=== PATIENT | male | born 1990 | race Caucasian/White ===

== ENCOUNTER 2016-06-25 00:01 | Emergency (ER) | payer SELFPAY ==
[~2016-06-25] VITALS: Ht 193 cm; Wt 124.7 kg
[2016-06-25 00:45] LABS: OBC FLU VALID
[2016-06-25] MEDS ORDERED: IV NORMAL SALINE 1000ML BAG 1,000 ML IV ONE (00:45)
--- NOTE | 2016-06-25 00:54 | PHYS DOC ---
Past Medical History Past Medical History: No Pertinent History Past Surgical History: No Surgical History Additional Information: PPD Alcohol Use: Occasionally Drug Use: None Adult General Chief Complaint Chief Complaint: FEVER HPI HPI 25-year-old male who's had cough and congestion for the last 2-3 days as well as a sore throat. He denies any significant chest pain or shortness of breath. He denies any nausea or vomiting. He states he has been able to keep well- hydrated and has a normal appetite. He denies any history of health problems. Patient does state he smokes but has not been smoking with this illness. Review of Systems Review of Systems Constitutional: Denies fever or chills [] Eyes: Denies change in visual acuity, redness, or eye pain [] HENT: Denies nasal congestion or sore throat [] Respiratory: Denies cough or shortness of breath [] Cardiovascular: No additional information not addressed in HPI [] GI: Denies abdominal pain, nausea, vomiting, bloody stools or diarrhea [] : Denies dysuria or hematuria [] Musculoskeletal: Denies back pain or joint pain [] Integument: Denies rash or skin lesions [] Neurologic: Denies headache, focal weakness or sensory changes [] Endocrine: Denies polyuria or polydipsia [] Current Medications Current Medications Current Medications Medications (Trade) Dose Ordered Sig/Natasha Start Time Stop Time Status Last Admin Dose Admin Oseltamivir Phosphate (Tamiflu) 75 mg 1X ONCE 06/25/16 01:00 06/25/16 01:01 DC 06/25/16 00:58 75 MG Sodium Chloride (Iv Sodium Chloride 0.9% 1000ml Bag) 1,000 ml @ 1,000 mls/hr 1X ONCE 06/25/16 00:45 06/25/16 01:44 DC 06/25/16 00:41 1,000 MLS/HR Allergies Allergies Allergies Coded Allergies Type Severity Reaction Last Updated Verified No Known Drug Allergies 06/25/16 No Physical Exam Physical Exam Constitutional: Well developed, well nourished, no acute distress, non-toxic appearance. [] HENT: Normocephalic, atraumatic, bilateral external ears normal, oropharynx moist, no oral exudates, nose normal. [] Eyes: PERRLA, EOMI, conjunctiva normal, no discharge. [] Neck: Normal range of motion, no tenderness, supple, no stridor. [] Cardiovascular:Heart rate regular rhythm, no murmur [] Lungs & Thorax: Bilateral breath sounds clear to auscultation [] Abdomen: Bowel sounds normal, soft, no tenderness, no masses, no pulsatile masses. [] Skin: Warm, dry, no erythema, no rash. [] Back: No tenderness, no CVA tenderness. [] Extremities: No tenderness, no cyanosis, no clubbing, ROM intact, no edema. [] Neurologic: Alert and oriented X 3, normal motor function, normal sensory function, no focal deficits noted. [] Psychologic: Affect normal, judgement normal, mood normal. [] Current Patient Data Vital Signs Vital Signs Date Time Temp Pulse Resp B/P Pulse Ox O2 Delivery O2 Flow Rate FiO2 06/25/16 01:45 112 20 144/87 92 Room Air 06/25/16 00:05 98.5 98.5 Lab Values Laboratory Tests Test 06/25/16 00:10 06/25/16 00:47 Influenza Type A Antigen Negative (NEGATIVE) Influenza Type B Antigen Positive (NEGATIVE) White Blood Count 10.2x10^3/uL (4.0-11.0) Red Blood Count 4.66x10^6/uL (4.30-5.70) Hemoglobin 14.9g/dL (13.0-17.5) Hematocrit 43.1% (39.0-53.0) Mean Corpuscular Volume 93fL (79-100) Mean Corpuscular Hemoglobin 32pg (25-35) Mean Corpuscular Hemoglobin Concent 35g/dL (31-37) Red Cell Distribution Width 13.1% (11.5-14.5) Platelet Count 179x10^3/uL (140-400) Neutrophils (%) (Auto) 77% (31-73) H Lymphocytes (%) (Auto) 10% (24-48) L Monocytes (%) (Auto) 12% (0-9) H Eosinophils (%) (Auto) 0% (0-3) Basophils (%) (Auto) 1% (0-3) Neutrophils # (Auto) 7.8x10^3uL (1.8-7.7) H Lymphocytes # (Auto) 1.0x10^3/uL (1.0-4.8) Monocytes # (Auto) 1.3x10^3/uL (0.0-1.1) H Eosinophils # (Auto) 0.0x10^3/uL (0.0-0.7) Basophils # (Auto) 0.1x10^3/uL (0.0-0.2) Sodium Level 139mmol/L (136-145) Potassium Level 3.4mmol/L (3.5-5.1) L Chloride Level 103mmol/L (98-107) Carbon Dioxide Level 24mmol/L (21-32) Anion Gap 12 (6-14) Blood Urea Nitrogen 10mg/dL (8-26) Creatinine 1.2mg/dL (0.7-1.3) Estimated GFR (Cockcroft-Gault) 74.4 Glucose Level 113mg/dL (70-99) H Calcium Level 8.4mg/dL (8.5-10.1) L Laboratory Tests 06/25/16 00:47 Laboratory Tests 06/25/16 00:47 EKG EKG [] Radiology/Procedures Radiology/Procedures Portable one view chest as interpreted by me does not reveal an acute cardio pulmonary process. Course & Med Decision Making Course & Med Decision Making Pertinent Labs and Imaging studies reviewed. (See chart for details) This 25-year-old male who presents with cough and flulike illness has an influenza swab that is positive for influenza B. His chest xray is unremarkable. His laboratory workup is unremarkable. I will order him a dose of Tamiflu. Because he is tachycardic in the 120s, I will be giving him a liter bolus and reevaluating him after a liter. If his heart rate improves I'll be discharging him home with a dose of Tamiflu. Laboratory workup will also be obtained. On my final reassessment, the patient's tachycardia is improved significantly after liter fluid bolus. He feels much improved. I'll be discharged with a course of Tamiflu with strict instruction remain well-hydrated and rest and to follow closely with his primary care doctor in the next several days for symptom resolution. Dragon Disclaimer Dragon Disclaimer This electronic medical record was generated, in whole or in part, using a voice recognition dictation system. Departure Departure Impression: Primary Impression: Influenza B Disposition: HOME, SELF-CARE Admitting Physician: Other Condition: STABLE Referrals: NO PCP (PCP) Patient Instructions: Influenza, Adult Additional Instructions: Please follow up with your primary doctor in 2-3 days. Continue to drink plenty of fluids. Take your tamiflu as prescribed. Return to the ER if you develop any worsening of your symptoms. Scripts Oseltamivir Phosphate (Tamiflu)75 Mg Capsule1 Cap PO BID #9 CAP Prov:AURORA SERRANO DO 06/25/16 AURORA SERRANO DO Jun 25, 2016 00:54
[2016-06-25 00:56] LABS: BASO # 0.1 x10^3/uL (0.0-0.2); BASO % 1 % (0-3); EOS % 0 % (0-3); HEMATOCRIT 43.1 % (39.0-53.0); HEMOGLOBIN 14.9 g/dL (13.0-17.5); LYMPH % 10 % (24-48); MEAN CORPUSCULAR HEMOGLOBIN 32 pg (25-35); MEAN CORPUSCULAR HGB CONC 35 g/dL (31-37); MEAN CORPUSCULAR VOLUME 93 fL (79-100); MONO % 12 % (0-9); NEUT % 77 % (31-73); PLATELET COUNT 179 x10^3/uL (140-400); RED BLOOD COUNT 4.66 x10^6/uL (4.30-5.70); RED CELL DISTRIBUTION WIDTH 13.1 % (11.5-14.5); WHITE BLOOD COUNT 10.2 x10^3/uL (4.0-11.0)
[2016-06-25] MEDS ORDERED: OSELTAMIVIR 75 MG CAPSULE PO ONE (01:00)
[2016-06-25 01:02] LABS: CALCIUM 8.4 mg/dL (8.5-10.1); CREATININE 1.2 mg/dL (0.7-1.3); GFR 74.4; POTASSIUM 3.4 mmol/L (3.5-5.1)
[2016-06-25 01:45] VITALS: BP 144/87
[2016-06-25] MEDS ORDERED: OSEL75CA PO (01:48)
--- NOTE | 2016-06-25 07:43 | RAD ---
Portable chest, 06/25/2016: History: Chest pain The heart size and pulmonary vascularity are normal. No pulmonary infiltrates are seen. There is no evidence of pleural fluid. IMPRESSION: No acute cardiopulmonary abnormality is detected.
== END 2016-06-25 01:45 | disposition home or self-care (01) ==
LOC: ER 00:01
DX: J10.1 Influenza due to other identified influenza virus with other respiratory manifestations (principal); F17.200 Nicotine dependence, unspecified, uncomplicated
CPT/HCPCS: 36415; 71010; 80048; 85027; 87804; 96360; 99285; J7030